=== PATIENT | female | born 1935 | race African-American/Black ===

== ENCOUNTER 2019-02-22 15:13 | Emergency (ER) | payer MEDICARE, BC ==
[~2019-02-22] VITALS: Ht 165.1 cm; Wt 73.0 kg
[~2019-02-22 15:13] MED LIST: BENI5; MELO-104
[2019-02-22 15:57] VITALS: BP 164/86
[2019-02-22 16:28] LABS: BASOPHILS % 1.2 % (0.0-2.0); EOSINOPHILS % 1.8 % (0.0-5.0); HEMATOCRIT. 36.5 % (36.0-48.0); HEMOGLOBIN. 12.4 g/dL (12.0-16.0); LYMPHOCYTES % 34.8 % (20.0-50.0); MEAN CORPUSCULAR HEMOGLOBIN 30.1 pg (28.0-32.0); MEAN CORPUSCULAR VOLUME 88.7 fL (81.0-99.0); MEAN PLATELET VOLUME 7.7 fl (7.4-10.4); MONOCYTES % 5.5 % (2.0-8.0); NEUTROPHILS % 56.7 % (40.0-76.0); PLATELET 234 x1000/uL (130-400); RED BLOOD CELL COUNT 4.12 mill/uL (4.2-5.4)
[2019-02-22 16:35] LABS: CHLORIDE 106 mEq/L (98-107)
[2019-02-22 16:43] LABS: PROTHROMBIN TIME 10.2 sec (9.6-11.0)
== END 2019-02-22 17:16 | disposition left against medical advice (07) ==
LOC: ER 15:13 → CANBEDREQ 17:19
DX: I16.0 Hypertensive urgency (principal); M19.90 Unspecified osteoarthritis, unspecified site; Z98.890 Other specified postprocedural states
CPT/HCPCS: 36415; 80053; 84484; 85025; 93005; 99283